=== PATIENT | male | born 1980 | race Two or more races ===

== ENCOUNTER 2020-07-30 | Outpatient (REF) | payer MEDICAID, SELFPAY ==
--- NOTE | 2020-07-30 14:10 | US_ITS ---
EXAMINATION: US SCROTUM CLINICAL INFORMATION: Left groin pain for one week. Evaluate for hernia.. COMPARISON: None TECHNIQUE: A sonogram of the scrotum was performed assessing charles-scale appearance and color Doppler flow. Spectral Doppler analysis of the arterial and venous flow were performed in the testes bilaterally. FINDINGS: RIGHT: Right testicle measures 4.7 x 2.1 x 3.4 cm, volume 17 mL. No focal testicular parenchymal lesions are visualized. Spectral Doppler analysis of the arterial and venous flow is normal in the right testis. Right epididymal head is normal in size. Right epididymal Doppler flow is normal. There is a small right hydrocele. There is a small right varicocele. LEFT: Left testicle measures 3.8 x 2.1 x 2.8 cm, volume 11.4 mL. No focal testicular parenchymal lesions are visualized. Spectral Doppler analysis of the arterial and venous flow is normal in the left testis. Left epididymal head is normal in size. Left epididymal Doppler flow is normal.. There is a small left varicocele. There is no left hydrocele. No left inguinal hernia is seen. There is a left inguinal lymph node. This is normal in size measuring 1.6 x 0.8 x 1.5 cm in sagittal AP and transverse dimension. This demonstrates normal ultrasound morphology and hilar flow. US/US scrotum IMPRESSION: No hernia seen. Small bilateral varicoceles. Small right hydrocele.
== END 2020-07-30 00:01 | disposition home or self-care (01) ==
LOC: HO.US
PROVIDERS: PCP Nurse Practitioner Family; Visit Provider Nurse Practitioner Family
DX: R10.32 Left lower quadrant pain (principal)
CPT/HCPCS: 76870

== ENCOUNTER 2020-08-28 01:38 | Emergency (ER) | payer MEDICAID, SELFPAY ==
[2020-08-28] VITALS (10 sets, daily range): BP systolic 122–132; BP diastolic 66–91; PULSE 88–128; RESP 17–30; O2SAT 92–99; BMI 41.9
--- NOTE | ~2020-08-28 | XR_ITS ---
EXAMINATION: XR CHEST CLINICAL INFORMATION: Low O2 sats COMPARISON: None TECHNIQUE: Frontal view of the chest was obtained. FINDINGS: The lungs are hypoexpanded and clear. The heart size and pulmonary vascularity is normal. No gross bony abnormality seen. XR/XR chest 1V IMPRESSION: Hypoexpanded lungs are clear.
[2020-08-28] MEDS: diphenhydrAMINE HCL 50 MG/ML VIAL IM (01:45)
[2020-08-28] MEDS: LORazepam 2 MG/ML VIAL IM (01:45)
--- NOTE | 2020-08-28 01:49 | ED.OVERDOSE ---
HPI - Overdose General Chief Complaint: ETOH/Substance Use Stated Complaint: substance use Time Seen by Provider: 08/28/20 01:45 Source: EMS Mode of arrival: EMS History of Present Illness HPI Narrative: This is a 40-year-old male who is brought in by police department via EMS with reported drug use and suspect PCP. Patient extremely agitated upon arrival and unable to provide any history at this time. Related Data Allergies Allergy/AdvReac Type Severity Reaction Status Date / Time shellfish derived Allergy Severe SWELLING, Unverified 03/14/20 15:22 [SHELLFISH DERIVED] HIVES SEAFOOD Allergy Intermediate HIVES Uncoded 03/14/20 15:22 shellfish Allergy Unknown Uncoded 08/30/17 00:00 amanda silver Allergy Unknown Uncoded 08/30/17 00:00 Review of Systems Review of Systems: Yes Unobtainable due to mental condition PMFSH Past Medical History Source: nursing notes reviewed Social History Social History Alcohol intake: unknown Smoking Status: Unknown if ever smoked Use of substances other than those prescribed or required for medical reasons: Unknown Advance Directives: No Physical Exam Vital Signs: Vital Signs: Last Vital Signs Pulse 97 08/28/20 06:00 Resp 18 08/28/20 06:00 BP 125/76 08/28/20 06:00 Pulse Ox 97 08/28/20 06:00 Body Mass Index 41.9 VITAL SIGNS: Reviewed. GENERAL: Well developed, well nourished, in no acute distress. HEAD: Normocephalic/atraumatic EYES: PERRLA, EOMI OROPHARYNX: no oral lesions noted, posterior pharynx clear NECK: Supple, no adenopathy LUNGS: Normal breath sounds. No adventitious sounds or accessory muscle use. SpO2<94> CARDIOVASCULAR: Tachycardic rate and rhythm without noted murmurs ABDOMEN: Soft, non-tender, non-distended with bowel sounds. SKIN: Inspection of the skin reveals no rashes NEUROLOGIC: Alert and agitated. Strength and sensation to light touch were grossly intact x 4. Course Course Course Narrative: This is a 40-year-old male with history and clinical presentation consistent with substance overdose and requiring both chemical and physical restraint upon arrival. Multiple attempts were made to redirect and to deescalate patient's as taken prior to application of chemical restraint. Patient will need to be re-evaluated when he awakens from chemical restraint. Signed out to Dr Alvarado. Reevaluation(s) Reevaluation #1: Informed by nursing that patient had been given 10 mg of Geodon accidentally instead of olanzapine. An incident report will be filed, labs, EKG and an IV line will be placed, but not necessary to call Poison Control. Time: 02:13 Reevaluation #2: Patient re-evaluated and noted to be sleeping and no longer agitated, out of physical restraints, arousable. Time: 02:45 MDM - Overdose Lab Data Result diagrams: 08/28/20 03:19 08/28/20 03:19 Labs: Lab Results 08/28/20 08/28/20 08/28/20 Range/Units 03:19 03:19 03:19 WBC 14.8 H (4.8-10.8) X10*3/uL RBC 5.27 (4.60-5.80) X10*6/uL Hgb 15.1 (14.0-18.0) g/dl Hct 46.1 (42-52) % MCV 87.5 (80-98) fL MCH 28.7 (27.0-33.0) pg MCHC 32.8 (31.0-36.0) g/dl RDW 13.8 (11.0-16.0) % Plt Count 202 (160-400) X10*3/uL MPV 10.2 (9.4-12.4) fL Immature Gran % (Auto) 0.7 H (0.0-0.4) % Neut % (Auto) 80.5 H (45-73) % Lymph % (Auto) 12.5 L (20-40) % Randolph % (Auto) 5.6 (2-11) % Eos % (Auto) 0.2 (0-4) % Baso % (Auto) 0.5 (0-2) % Lymph # (Auto) 1.9 (1.2-4.9) X10*3/uL Randolph # (Auto) 0.8 (0.1-1.2) X10*3/uL Eos # (Auto) 0.0 (0.0-0.4) X10*3/uL Baso # (Auto) 0.1 (0.0-0.2) X10*3/uL Abs Immat Gran (auto) 0.10 H (0.00-0.03) X10*3/uL Absolute Neuts (auto) 11.9 H (2.0-8.3) X10*3/uL Absolute Nucleated RBC 0.000 (0.0-0.012) X10*3/uL Nucleated RBC % (auto) 0.0 (0.0-0.2) /100WBC Sodium 139 (135-145) mmol/L Potassium 4.2 (3.3-5.1) mmol/L Chloride 103 (96-108) mmol/L Carbon Dioxide 23 (22-29) mmol/L Anion Gap 17 (12-20) BUN 14 (9-16) mg/dL Creatinine 1.26 (0.5-1.4) mg/dL Estim Creat Clear Calc 92.3 Estimated GFR > 60 Random Glucose 112 (60-115) mg/dL Calcium 8.9 (8.4-10.2) mg/dL Magnesium 2.3 (1.6-2.6) mg/dL Total Bilirubin 0.4 (0.0-1.0) mg/dL AST 29 (5-37) U/L ALT 50 H (0-40) U/L Alkaline Phosphatase 61 (39-117) U/L Total Protein 7.9 (6.5-8.0) g/dL Albumin 4.8 (3.5-5.0) g/dL Ethyl Alcohol Cancelled 08/28/20 Range/Units 04:04 WBC (4.8-10.8) X10*3/uL RBC (4.60-5.80) X10*6/uL Hgb (14.0-18.0) g/dl Hct (42-52) % MCV (80-98) fL MCH (27.0-33.0) pg MCHC (31.0-36.0) g/dl RDW (11.0-16.0) % Plt Count (160-400) X10*3/uL MPV (9.4-12.4) fL Immature Gran % (Auto) (0.0-0.4) % Neut % (Auto) (45-73) % Lymph % (Auto) (20-40) % Randolph % (Auto) (2-11) % Eos % (Auto) (0-4) % Baso % (Auto) (0-2) % Lymph # (Auto) (1.2-4.9) X10*3/uL Randolph # (Auto) (0.1-1.2) X10*3/uL Eos # (Auto) (0.0-0.4) X10*3/uL Baso # (Auto) (0.0-0.2) X10*3/uL Abs Immat Gran (auto) (0.00-0.03) X10*3/uL Absolute Neuts (auto) (2.0-8.3) X10*3/uL Absolute Nucleated RBC (0.0-0.012) X10*3/uL Nucleated RBC % (auto) (0.0-0.2) /100WBC Sodium (135-145) mmol/L Potassium (3.3-5.1) mmol/L Chloride (96-108) mmol/L Carbon Dioxide (22-29) mmol/L Anion Gap (12-20) BUN (9-16) mg/dL Creatinine (0.5-1.4) mg/dL Estim Creat Clear Calc Estimated GFR Random Glucose (60-115) mg/dL Calcium (8.4-10.2) mg/dL Magnesium (1.6-2.6) mg/dL Total Bilirubin (0.0-1.0) mg/dL AST (5-37) U/L ALT (0-40) U/L Alkaline Phosphatase (39-117) U/L Total Protein (6.5-8.0) g/dL Albumin (3.5-5.0) g/dL Ethyl Alcohol 85 ECG Data Attestation: I personally reviewed and interpreted this ECG as follows: Interpretation: Sinus tachycardia, HR-111, no evidence of acute ischemia, ME/QRS/QTC are within normal limits.
[2020-08-28 03:25] LABS: Basophils Absolute Auto 0.1 X10*3/uL (0.0-0.2); Basophils Percent Auto 0.5 % (0-2); Eosinophils Percent Auto 0.2 % (0-4); Hematocrit 46.1 % (42-52); Hemoglobin 15.1 g/dl (14.0-18.0); Imm Gran Pct Auto 0.7 % (0.0-0.4); Lymphocytes Absolute Auto 1.9 X10*3/uL (1.2-4.9); Lymphocytes Percent Auto 12.5 % (20-40); MANUAL DIFF FLAG NO; Mean Corpuscular HGB Conc 32.8 g/dl (31.0-36.0); Mean Corpuscular Hemoglobin 28.7 pg (27.0-33.0); Mean Corpuscular Volume 87.5 fL (80-98); Mean Platelet Volume 10.2 fL (9.4-12.4); Monocytes Absolute Auto 0.8 X10*3/uL (0.1-1.2); Monocytes Percent Auto 5.6 % (2-11); Neutrophils Absolute Auto 11.9 X10*3/uL (2.0-8.3); Neutrophils Percent Auto 80.5 % (45-73); Platelet Count 202 X10*3/uL (160-400); Red Blood Count 5.27 X10*6/uL (4.60-5.80); Red Cell Distribution Width 13.8 % (11.0-16.0); White Blood Count 14.8 X10*3/uL (4.8-10.8)
--- NOTE | 2020-08-28 03:40 | PC.NURSE ---
Late entry: Patient was brought in by ems and [employer] for substance use and out of control behavior. Per [employer], patient stopped and flagged down an officer for assistance and then began wigging out . Pt transported in cuffs with [employer] and ems. Pt attempting to stand on EMS stretcher. 5+ [employer] and security officers assisting with transfer to Bed. Pt screaming and throwing legs over rails. Unable to be verbally deescalated. Pt placed in physical restraints. Verbal order for chemical restraints given. MD verbal ordered Ativan 2mg IM, 50 mg Benadryl, and 10mg Zyprexa. medicated with 10mg geodon in error. MD aware. additional orders placed. will continue to monitor. rn telephonic and [employer] aware. Pt having no ill effects at this time. No distress noted. Respirations even and unlabored. VS within normal limits and okayed by provider.
--- NOTE | 2020-08-28 03:53 | ECG_ITS ---
Test Reason : DRUG USE Blood Pressure : / mmHG Vent. Rate : 111 BPM Atrial Rate : 111 BPM P-R Int : 152 ms QRS Dur : 086 ms QT Int : 338 ms P-R-T Axes : 053 070 041 degrees QTc Int : 459 ms Sinus tachycardia Otherwise normal ECG When compared with ECG of 21-MAY-2019 14:13, No significant change was found Referred By: Bailee Navarro Electronically Signed By:MISSAEL ABRAMS
[2020-08-28 03:54] LABS: Alanine Aminotransferase 50 U/L (0-40); Albumin Level 4.8 g/dL (3.5-5.0); Alkaline Phosphatase 61 U/L (39-117); Anion Gap 17 (12-20); Aspartate Amino Transferase 29 U/L (5-37); Bilirubin Total 0.4 mg/dL (0.0-1.0); Blood Urea Nitrogen 14 mg/dL (9-16); Calcium 8.9 mg/dL (8.4-10.2); Carbon Dioxide 23 mmol/L (22-29); Chloride 103 mmol/L (96-108); Creatinine Clr Calc Pharmacy 92.3; Estimated Glomerular Filt Rate > 60; Glucose Random 112 mg/dL (60-115); Magnesium 2.3 mg/dL (1.6-2.6); Potassium 4.2 mmol/L (3.3-5.1); Sodium 139 mmol/L (135-145); Total Protein 7.9 g/dL (6.5-8.0)
[2020-08-28] MEDS: 0.9 % Sodium Chloride 1,000 ML 999 ML IV (04:16)
[2020-08-28 04:35] LABS: Ethanol 85 mg/dL
--- NOTE | 2020-08-28 04:55 | PC.NURSE ---
sleeping at this time. skin p/w/d. airway patent. vss. no distressnoted. respirations even and unlabored.
--- NOTE | 2020-08-28 10:56 | MHC.RECOVSUP ---
? Reason for consult:Continuity of care o Current location: Bed 22 o Identified substance use concern: PCP/ETOH - Overdose - Support ? Intervention: o Community resources provided o Harm reduction discussion ? Plan: o Referral to [facility] o Patient to follow up with [facility] after discharge ? Additional information: Patient refusing services,pt was on ETOH and PCP.
[2020-08-28 11:27] LABS: Glucose Urine UA NEG (NEG); Leukocyte Esterase Urine NEG (NEG); Nitrite Urine NEG (NEG); Specific Gravity - Urine >= 1.030 (1.005-1.025); Urine Blood NEG (NEG); Urine Ketones NEG (NEG); Urine Protein NEG (NEG-TRACE)
[2020-08-28 11:35] LABS: Appearance Urine CLEAR; Color Urine YELLOW
[2020-08-28 12:03] LABS: Amphetamine Screen Urine Not Detected (Not Detect); Barbiturates, Urine Not Detected (Not Detect); Benzodiazepines Screen Urine Not Detected (Not Detect); Cannabinoid Screen Urine POSITIVE (Not Detect); Cocaine Screen Urine POSITIVE (Not Detect); Opiate Screen Urine Not Detected (Not Detect); Phencyclidine Screen Urine POSITIVE (Not Detect)
== END 2020-08-28 11:44 | disposition home or self-care (01) ==
PROVIDERS: Emergency Provider Student in an Organized Health Care Education/Training Program
DX: T40.991A Poisoning by other psychodysleptics [hallucinogens], accidental (unintentional), initial encounter (principal); X58.XXXA Exposure to other specified factors, initial encounter; F10.129 Alcohol abuse with intoxication, unspecified; Y90.4 Blood alcohol level of 80-99 mg/100 ml; Z71.51 Drug abuse counseling and surveillance of drug abuser; Z79.899 Other long term (current) drug therapy
CPT/HCPCS: 36415; 71045; 80053; 80307; 80320; 81003; 83735; 85025; 93005; 96372; 99284; J1200; J2060

== ENCOUNTER 2021-10-22 12:03 | Outpatient (REF) | payer MEDICAID, SELFPAY ==
--- NOTE | ~2021-10-22 | US_ITS ---
EXAMINATION: US PELVIS, LIMITED/FOLLOW UP CLINICAL INFORMATION: Left inguinal and upper scrotal pain; question hernia. COMPARISON: None TECHNIQUE: Using a linear transducer with grayscale and color modalities, ultrasound performed of the bilateral inguinal regions. FINDINGS: The cutaneous, subcutaneous, muscular and fascial planes are unremarkable. Within the left inguinal region, there are reniform lymph nodes, the largest showing dimensions of 1.8 x 0.7 x 1.4 cm. This latter lymph node shows a generalized cortical thickening. There are further shotty, nonpathologically enlarged left inguinal lymph nodes. All of the above lymph nodes show well-maintained corticomedullary differentiation. No focal hernia is seen. No abnormal mass or fluid collection is seen. US/US pelvic limited IMPRESSION: 1. No inguinal hernia is presently noted with ultrasound. 2. There are bilateral inguinal lymph nodes, including a solitary pathologically enlarged left inguinal lymph node, which corresponds with the palpable finding described by the patient. This is a nonspecific finding, which may be managed on a clinical basis. If of continued clinical concern, consider repeat ultrasound examination in 3-6 months to ensure stability/regression.
== END 2021-10-22 12:04 | disposition home or self-care (01) ==
LOC: HO.US 12:03
PROVIDERS: Visit Provider Emergency Medicine
DX: R10.32 Left lower quadrant pain (principal)
CPT/HCPCS: 76857